=== PATIENT | female | born 1970 | race Caucasian/White ===

== ENCOUNTER → 2017-03-03 | Outpatient (CLI) | payer BC ==
[2017-03-03 10:12] LABS: HEMOGLOBIN 12.7 gm/dl (12.3-15.3); WHITE BLOOD COUNT 9.1 K/UL (4.5-11.0)
[2017-03-03 10:46] LABS: BUN/CREATININE RATIO 17 (0-10)
== END ==
LOC: LAB 09:04
PROVIDERS: Nurse Practitioner Family
DX: I10 Essential (primary) hypertension (principal); I49.9 Cardiac arrhythmia, unspecified; N95.1 Menopausal and female climacteric states; E55.9 Vitamin D deficiency, unspecified; R53.83 Other fatigue; Z13.220 Encounter for screening for lipoid disorders
CPT/HCPCS: 36415; 80053; 80061; 82670; 82679; 83001; 83002; 84144; 84402; 84403; 84443; 85025